=== PATIENT | female | born 1985 | race Caucasian/White ===

== ENCOUNTER 2019-06-20 17:45 | Emergency (ER) | payer SELFPAY | END 2019-06-20 17:58 | disposition left against medical advice (07) | LOC: NAV ERS 17:45 | DX: Z53.21 Procedure and treatment not carried out due to patient leaving prior to being seen by health care provider (principal); F17.210 Nicotine dependence, cigarettes, uncomplicated ==

== ENCOUNTER 2020-02-01 20:39 | Emergency (ER) | payer SELFPAY ==
[2020-02-01] MEDS ORDERED: diphenhydrAMINE 50 MG/ML VIAL ONE (21:10)
[2020-02-01] MEDS ORDERED: Prochlorperazine 10 MG/2 ML VIAL ONE (21:10)
[2020-02-01] MEDS ORDERED: Sodium Chloride 0.9% 0 ML ONE (21:10)
[2020-02-01] MEDS ORDERED: Promethazine HCl 25 MG/ML VIAL ONE (21:10)
[2020-02-01] MEDS ORDERED: Ketorolac Tromethamine 30 MG/ML VIAL ONE (21:55)
--- NOTE | 2020-02-02 07:29 | CT ---
CT OF THE BRAIN WITHOUT CONTRAST: Date: 02/01/2020 HISTORY: Gradual onset headache. TECHNIQUE: Multiple contiguous axial images were obtained in a CT of the brain without contrast. Sagittal and co jef reformats were performed. FINDINGS: The brain is normal in morphology and attenuation without focal lesions or confluent areas of infarct ion. There is no evidence of hydrocephalus, intracranial hemorrhage, or extra-axial fluid collection. The calvarium and overlying soft tissues are unremarkable. The visualized paranasal sinuses and masto id air cells are well aerated. IMPRESSION: No evidence of acute intracranial abnormality. POS: [facility]
== END 2020-02-01 23:05 | disposition home or self-care (01) ==
LOC: NAV ERS 20:39
DX: F10.20 Alcohol dependence, uncomplicated (principal); F17.210 Nicotine dependence, cigarettes, uncomplicated; Z87.442 Personal history of urinary calculi
CPT/HCPCS: 70450; 96361; 96365; 96375; J0780; J1200; J1885; J2550; J3490